=== PATIENT | male | born 1990 | race African-American/Black ===

== ENCOUNTER 2022-06-14 16:40 | Emergency (ER) | payer OTHER, MEDICAID ==
[~2022-06-14] VITALS: Ht 185.4 cm; Wt 119.7 kg
[2022-06-14 18:34] VITALS: BP 135/92
== END 2022-06-14 19:56 | disposition home or self-care (01) ==
LOC: ER 16:40
DX: M77.8 Other enthesopathies, not elsewhere classified (principal); G89.29 Other chronic pain; M25.512 Pain in left shoulder
CPT/HCPCS: 93005